=== PATIENT | male | born 1980 | race Native Hawaiian/Other Pacific Islander ===

== ENCOUNTER 2022-07-30 22:45 | Emergency (ER) | payer OTHER ==
[~2022-07-30] VITALS: Ht 172.7 cm; Wt 93.0 kg
[2022-07-30 23:06] VITALS: BP 130/97; TEMP 98.9
[2022-07-30] MEDS ORDERED: TRAZODONE HYDR100 MG PO (23:14)
[2022-07-30] MEDS ORDERED: LIPITOR20 MG PO (23:14)
[2022-07-30] MEDS ORDERED: AMLODIPINE BESYLATE PO (23:14)
[2022-07-30] MEDS ORDERED: LOSA50TA PO (23:15)
[2022-07-30] MEDS ORDERED: PANTOPRAZOLE SO40 M1 PO (23:15)
[2022-07-30] MEDS ORDERED: KAPSPARGO SPRI100 MG PO (23:15)
[2022-07-30] MEDS ORDERED: VENLAFAXINE HYD75 M2 PO (23:16)
== END 2022-07-31 02:55 | disposition home or self-care (01) ==
LOC: ED 22:45
DX: E86.0 Dehydration (principal); Z98.890 Other specified postprocedural states
CPT/HCPCS: 81002; 96360; 96374; 96375; 99284; J1885; J2405; J3490

== ENCOUNTER 2023-06-28 22:38 | Emergency (ER) | payer OTHER ==
[~2023-06-28] VITALS: Ht 172.7 cm; Wt 95.3 kg
[~2023-06-28 22:38] MED LIST: AMLODIPINE BESYLATE PO; KAPSPARGO SPRI100 MG PO; LIPITOR20 MG PO; LOSA50TA PO; PANTOPRAZOLE SO40 M1 PO; TRAZODONE HYDR100 MG PO; VENLAFAXINE HYD75 M2 PO
[2023-06-29 04:15] VITALS: BP 128/90; TEMP 97.7
== END 2023-06-29 04:15 | disposition home or self-care (01) ==
LOC: ED 22:38
DX: R10.9 Unspecified abdominal pain (principal); N20.0 Calculus of kidney
CPT/HCPCS: 96361; 96366; 96374; 96375; 96376; 99284; J2270; J2405